=== PATIENT | female | born 1935 | race Caucasian/White ===

== ENCOUNTER → 2016-10-16 | Outpatient (CLI) | payer MEDICARE, OTHER ==
[~2016-10-16] MED LIST: CELEXA20 MG PO; CEPHALEXIN500 M1 PO; FERROUS SU325 MG/TAB PO; FOLIC ACID 40400 MCG PO; MULTIVITAMIN FO1 CAP PO; TRIAMTERENE W/H1 CAP PO; TRIAMTERENE/HCT1 TAB PO; TYLENOL PM EXTR1 TA1 PO; VITAMIN C BUFF500 MG PO
== END ==
LOC: COL.RAD 10:05
DX: M25.551 Pain in right hip (principal); Z96.641 Presence of right artificial hip joint
CPT/HCPCS: J3301; Q9967

== ENCOUNTER → 2016-12-24 | Outpatient (CLI) | payer MEDICARE ==
[2016-12-24 13:40] LABS: CREATININE, serum 1.32 mg/dL (0.52-1.25)
== END ==
LOC: COL.LAB 12:44
PROVIDERS: Orthopaedic Surgery
DX: Z01.89 Encounter for other specified special examinations (principal)

== ENCOUNTER → 2018-08-24 | Outpatient (CLI) | payer MEDICARE ==
[2018-08-24 12:23] LABS: HEMATOCRIT 43.4 % (37.0-47.0); HEMOGLOBIN 14.1 g/dl (12.5-16.0); MEAN CELL VOLUME 106 fl (80.0-100.0); MEAN CORPUSCULAR HEMOGLOBIN 34 pg (27.0-31.0); MEAN CORPUSCULAR HGB CONC 33 g/dl (33.0-37.0); MEAN PLATELET VOLUME 8.5 fl (7.4-10.4); PLATELET COUNT 209 K/mm3 (130-400); RED BLOOD COUNT 4.11 M/mm3 (4.10-5.30); REDCELL DISTRIBUTION WIDTH-CV 13.2 % (11.5-14.5)
[2018-08-24 13:09] LABS: ERYTHROCYTE SEDIMENTATION RATE 5 mm/hr (0-30)
== END ==
LOC: COL.LAB 11:59
PROVIDERS: Orthopaedic Surgery
DX: M25.561 Pain in right knee (principal)